=== PATIENT | female | born 1995 | race Caucasian/White ===

== ENCOUNTER 2017-02-12 11:52 | Emergency (ER) | payer BC ==
[2017-02-12 12:07] VITALS: BP 140/86
--- NOTE | 2017-02-12 12:07 | EDM.PDOC ---
[id number]: [id number] SHARP CHEST PAINS WHEN BREATHING Time Seen by Provider: 02/12/17 12:07 Source of Information: Reports: Patient, RN, RN notes reviewed History Limitations: Reports: No limitations - History of Present Illness INITIAL COMMENTS - FREE TEXT/NARRATIVE: C/O onset of sharp mid-sternal chest pains at 10:00HRS today. Denies cough, congestions, wheezing, N/V, abd. pain, radiating pain, sore throat, acid reflux , palpitations, or edema. Timing/Duration: Reports: Constant, Waxing/waning Location, General: Reports: chest Quality: Reports: Sharp Improves with: Reports: None Worsens with: Reports: Breathing (cough, and movement) Context, General: Denies: Activity, Exercise, Lifting, Sick contact, Trauma Associated Symptoms (General): Reports: no other symptoms - Related Data Allergies/ADRs: Allergies Allergy/AdvReac Type Severity Reaction Status Date / Time No Known Allergies Allergy Verified 02/12/17 12:03 Home Meds: Home Meds PARoxetine [Paxil] 20 mg PO DAILY 02/12/17 [History] Past Medical History - Past Health History Medical/Surgical History: Denies Medical/Surgical History Endocrine/Metabolic History: Reports: Obesity/BMI 30+ Social & Family History - Family History Family Medical History: Noncontributory - Tobacco Use Smoking Status *Q: Never Smoker - Alcohol Use Alcohol Use History: No - Recreational Drug Use Recreational Drug Use: No - Living Situation & Occupation Living situation: Reports: Occupation: employed ED ROS GENERAL - Review of Systems Review Of Systems: ROS reveals no pertinent complaints other than HPI. ED EXAM, GENERAL - Physical Exam Exam: See Below Exam Limited By: No limitations General Appearance: alert, WD/WN, no apparent distress, obese Nose: normal inspection, normal mucosa, no blood Throat/Mouth: Normal inspection, Normal lips, Normal teeth, Normal gums, Normal oropharynx, Normal voice, No airway compromise Head: atraumatic, normocephalic Neck: normal inspection, supple, non-tender, full range of motion. No: lymphadenopathy (L), lymphadenopathy (R) Respiratory/Chest: no respiratory distress, no accessory muscle use, decreased breath sounds. No: chest non-tender (tender to direct pressure on sternum which reproduces pain similar to the pt's cc pain.) Cardiovascular: normal peripheral pulses, regular rate, rhythm, no edema, no gallop, no JVD, no murmur, no rub GI/Abdominal: normal bowel sounds, soft, non tender, no distention Back Exam: normal inspection Extremities: normal inspection, normal range of motion, non-tender, normal capillary refill, no pedal edema Neurological: alert, oriented, CN II-XII intact, normal cognition, normal gait, no motor/sensory deficits Psychiatric: normal affect, normal mood Skin Exam: Warm, Dry, Intact, Normal color, No rash EKG INTERPRETATION EKG Date: 02/12/17 Time: 12:07 Rhythm: other (SR) Rate (beats/min): 91 [place]: normal P-wave: present QRS: normal ST-T: other (nonspecific changes in anterior leads) QT: normal Comparison: NA - no prior EKG Course - Vital Signs Last Recorded V/S: Last Vital Signs Temp 36.9 C 02/12/17 12:05 Pulse 92 02/12/17 12:05 Resp 18 02/12/17 12:05 BP 140/86 02/12/17 12:05 Pulse Ox 98 02/12/17 12:05 - Orders/Labs/Meds Orders: Active Orders 24 hr Category Date Time Status EKG 12 Lead [EKG Documentation Completion] [RC] STAT Care 02/12/17 12:17 Active Peripheral IV Care [RC] . DIRECTED Care 02/12/17 12:17 Active Peripheral IV Insertion Adult [OM.PC] Stat Oth 02/12/17 12:17 Ordered Labs: Laboratory Tests 02/12/17 02/12/17 02/12/17 Range/Units 12:11 12:11 12:21 WBC 7.5 (5.0-10.0) 10^3/uL RBC 4.82 (4.2-5.4) 10^6/uL Hgb 14.8 (12.0-16.0) g/dL Hct 41.7 (37.0-47.0) % MCV 86.5 (80-100) fL MCH 30.7 (27.0-34.0) pg MCHC 35.5 H (33.0-35.0) g/dL Plt Count 307 (150-450) 10^3/uL Neut % (Auto) 51.7 (42.2-75.2) % Lymph % (Auto) 40.4 (20.5-50.1) % [place] % (Auto) 5.8 (2-8) % Eos % (Auto) 1.6 (1.0-3.0) % Baso % (Auto) 0.5 (0.0-1.0) % D-Dimer, Quantitative (0-400) ng/mL Sodium (135-145) mmol/L Potassium (3.6-5.0) mmol/L Chloride (101-111) mmol/L Carbon Dioxide (21.0-31.0) mmol/L Anion Gap BUN (7-18) mg/dL Creatinine (0.6-1.3) mg/dL Est Cr Clr Drug Dosing mL/min Estimated GFR (MDRD) BUN/Creatinine Ratio Glucose (74-105) mg/dL Calcium (8.4-10.2) mg/dl Total Bilirubin (0.2-1.0) mg/dL AST (10-42) IU/L ALT (10-60) IU/L Alkaline Phosphatase (42-121) IU/L Troponin I (0.00-0.02) ng/ml Total Protein (6.7-8.2) g/dl Albumin (3.2-5.5) g/dl Globulin Albumin/Globulin Ratio Urine Color Yellow (YELLOW) Urine Appearance Slightly cloudy (CLEAR) Urine pH 5.5 (5.0-9.0) Ur Specific [place] 1.020 (1.005-1.030) Urine Protein Negative (NEGATIVE) Urine Glucose (UA) Negative (NEGATIVE) Urine Ketones Negative (NEGATIVE) Urine Occult Blood Large H (NEGATIVE) Urine Nitrite Negative (NEGATIVE) Urine Bilirubin Negative (NEGATIVE) Urine Urobilinogen 0.2 (0.2-1.0) mg/dL Ur Leukocyte Esterase Negative (NEGATIVE) Urine RBC 0-5 /HPF Urine WBC 0-5 (0-5/HPF) /HPF Ur Epithelial Cells Few /HPF Amorphous Sediment Few (0/HPF) /HPF Urine HCG, Qual Negative 02/12/17 02/12/17 Range/Units 12:21 12:21 WBC (5.0-10.0) 10^3/uL RBC (4.2-5.4) 10^6/uL Hgb (12.0-16.0) g/dL Hct (37.0-47.0) % MCV (80-100) fL MCH (27.0-34.0) pg MCHC (33.0-35.0) g/dL Plt Count (150-450) 10^3/uL Neut % (Auto) (42.2-75.2) % Lymph % (Auto) (20.5-50.1) % [place] % (Auto) (2-8) % Eos % (Auto) (1.0-3.0) % Baso % (Auto) (0.0-1.0) % D-Dimer, Quantitative < 100 (0-400) ng/mL Sodium 134 L (135-145) mmol/L Potassium 3.9 (3.6-5.0) mmol/L Chloride 98 L (101-111) mmol/L Carbon Dioxide 27.0 (21.0-31.0) mmol/L Anion Gap 12.9 BUN 14 (7-18) mg/dL Creatinine 0.6 (0.6-1.3) mg/dL Est Cr Clr Drug Dosing 110.04 mL/min Estimated GFR (MDRD) > 60 BUN/Creatinine Ratio 23.33 Glucose 95 (74-105) mg/dL Calcium 10.0 (8.4-10.2) mg/dl Total Bilirubin 0.6 (0.2-1.0) mg/dL AST 46 H (10-42) IU/L ALT 71 H (10-60) IU/L Alkaline Phosphatase 63 (42-121) IU/L Troponin I < 0.02 (0.00-0.02) ng/ml Total Protein 8.6 H (6.7-8.2) g/dl Albumin 5.0 (3.2-5.5) g/dl Globulin 3.6 Albumin/Globulin Ratio 1.39 Urine Color (YELLOW) Urine Appearance (CLEAR) Urine pH (5.0-9.0) Ur Specific [place] (1.005-1.030) Urine Protein (NEGATIVE) Urine Glucose (UA) (NEGATIVE) Urine Ketones (NEGATIVE) Urine Occult Blood (NEGATIVE) Urine Nitrite (NEGATIVE) Urine Bilirubin (NEGATIVE) Urine Urobilinogen (0.2-1.0) mg/dL Ur Leukocyte Esterase (NEGATIVE) Urine RBC /HPF Urine WBC (0-5/HPF) /HPF Ur Epithelial Cells /HPF Amorphous Sediment (0/HPF) /HPF Urine HCG, Qual Meds: Medications Discontinued Medications Generic Name Dose Route Start Last Admin Trade Name Freq PRN Reason Stop Dose Admin Hydrocodone Bitart/Acetaminophen 1 tab 02/12/17 13:09 02/12/17 13:20 [place] 325-10 Mg PO 02/12/17 13:10 1 tab ONETIME ONE Administration Methylprednisolone Sodium Succinate 125 mg 02/12/17 13:09 02/12/17 13:20 Solu-Medrol IVPUSH 02/12/17 13:10 125 mg ONETIME ONE Administration Sodium Chloride 10 ml 02/12/17 12:17 02/12/17 12:25 Saline Flush FLUSH 10 ml ASDIRECTED PRN Administration Keep Vein Open Departure - Departure Time of Disposition: 13:58 Disposition: Home, Self-Care 01 Condition: good Clinical Impression: Pleurisy without effusion Instructions: Pleurisy, [id number], Nonspecific Chest Pain, [id number] Referrals: PCP,Not In Area [Primary Care Provider] - Forms: ED Department Discharge Additional Instructions: Rx: Naprosyn 500mg *Take with food. Rx: Tylenol No. 3 *Take with food. Do not drive while under the influence of this medication. Take several deep breaths at least once every hour while awake to help prevent the development of pneumonia. Follow up in clinic if not improving in 1 week. Return to ER if worse at any time. - My Orders Last 24 Hours: My Active Orders 02/12/17 12:17 EKG 12 Lead [EKG Documentation Completion] [RC] STAT Peripheral IV Care [RC] . DIRECTED Peripheral IV Insertion Adult [OM.PC] Stat - Assessment/Plan Last 24 Hours: My Active Orders 02/12/17 12:17 EKG 12 Lead [EKG Documentation Completion] [RC] STAT Peripheral IV Care [RC] . DIRECTED Peripheral IV Insertion Adult [OM.PC] Stat
[2017-02-12] MEDS ORDERED: Sodium Chloride 0.9% 10 ML Syringe FLUSH PRN (12:17)
[2017-02-12 12:53] LABS: CHLORIDE,CL 98 mmol/L (101-111); SODIUM,NA 134 mmol/L (135-145)
[2017-02-12] MEDS ORDERED: Acetaminophen/HYDROcodone 325-10 MG Tab PO ONE (13:09)
[2017-02-12] MEDS ORDERED: methylPREDNISolone Sodium Succinate 125 MG/2 ML SDV IVPUSH ONE (13:09)
--- NOTE | 2017-02-12 15:16 | CR ---
CLINICAL HISTORY: 21-year-old female with chest pain. INTERPRETATION: AP portable chest film negative. Reasonable inspiratory effort obese female with external case monitor leads and gown snaps. Normal cardiac silhouette and bony thorax. No alveolar edema or dependent pleural effusion. No lung mass, hilar lymphadenopathy or focal lobar pneumonia. No atelectasis/collapse. No pneumothorax.
--- NOTE | 2017-02-19 12:02 | EKG ---
02/12/2017 - MIIR WILSON I reviewed the EKG and agree with the machine's reading. [facility] /[id number]
== END 2017-02-12 14:15 | disposition home or self-care (01) ==
LOC: DL.ED 11:52
DX: R09.1 Pleurisy (principal); E66.9 Obesity, unspecified; Z68.30 Body mass index [BMI] 30.0-30.9, adult; Z79.899 Other long term (current) drug therapy
CPT/HCPCS: 36415; 71010; 80053; 81001; 81025; 84484; 85025; 85379; 93005; 99285; A9270; J2930; J7050

== ENCOUNTER 2019-12-29 20:40 | Emergency (ER) | payer BC ==
[2019-12-29 20:54] VITALS: BP 137/81; PULSE 85
--- NOTE | 2019-12-29 21:28 | EDM.PDOC ---
ED HPI GENERAL MEDICAL PROBLEM - General Chief Complaint: Lower Extremity Injury/Pain Stated Complaint: TOP OF FOOT IS SWALLON. GOT OUT OF BED YESTERDAY. Time Seen by Provider: 12/29/19 20:55 Source of Information: Reports: Patient History Limitations: Reports: No Limitations - History of Present Illness INITIAL COMMENTS - FREE TEXT/NARRATIVE: ED with c/o pain to top of right foot, stated getting out of bed stepped wrong and pain in foot since, Described rolling foot ankle on outside. Treatments [employer] CUTTER: Reports: Acetaminophen, NSAIDS Right Foot Pain Score (Numeric/FACES): 4 - Related Data Allergies Allergy/AdvReac Type Severity Reaction Status Date / Time No Known Allergies Allergy Verified 12/29/19 20:46 Home Meds: Home Meds PARoxetine [Paxil] 30 mg PO DAILY 02/12/17 [History] Fingolimod HCl [Gilenya] 0.5 mg PO DAILY 12/29/19 [History] Rosuvastatin Calcium [Crestor] 40 mg PO BEDTIME 12/29/19 [History] Past Medical History - Past Health History Medical/Surgical History: Denies Medical/Surgical History HEENT History: Reports: Impaired Vision Cardiovascular History: Reports: High Cholesterol Respiratory History: Reports: Asthma Neurological History: Reports: MS Psychiatric History: Reports: Anxiety Endocrine/Metabolic History: Reports: Obesity/BMI 30+ Social & Family History - Family History Family Medical History: Noncontributory - Tobacco Use Smoking Status *Q: Never Smoker Second Hand Smoke Exposure: No - Caffeine Use Caffeine Use: Reports: Coffee - Recreational Drug Use Recreational Drug Use: No - Living Situation & Occupation Living situation: Reports: Occupation: Employed Review of Systems - Review of Systems Review Of Systems: Comprehensive ROS is negative, except as noted in HPI. ED EXAM, GENERAL - Physical Exam Exam: See Below Exam Limited By: No Limitations General Appearance: Alert, No Apparent Distress Ears: Normal External Exam, Hearing Grossly Normal Head: Atraumatic, Normocephalic Neck: Full Range of Motion Respiratory/Chest: Normal Breath Sounds Cardiovascular: Normal Peripheral Pulses Extremities: Other (mild selling right posterior foot and area below ankle. Minimal pain with flexion and internal rotation. Full external rotation and extension. full weight bearing.). No: Limited Range of Motion Neurological: Alert, Oriented, Normal Cognition Psychiatric: Normal Affect, Normal Mood Skin Exam: Warm, Dry, Intact, Normal Color. No: Ecchymosis Course - Vital Signs Last Recorded V/S: Last Vital Signs Temp 96.6 F L 12/29/19 20:48 Pulse 85 12/29/19 20:48 Resp 16 12/29/19 20:48 BP 137/81 12/29/19 20:48 Pulse Ox 99 12/29/19 20:48 - Orders/Labs/Meds Orders: Active Orders 24 hr Category Date Time Status Foot Comp Min 3V Rt [CR] Urgent Exams 12/29/19 20:55 Taken Departure - Departure Time of Disposition: 21:57 Disposition: Home, Self-Care 01 Condition: Good Clinical Impression: Foot sprain Qualifiers: Encounter type: initial encounter Laterality: right Qualified Code(s): S93.601A - Unspecified sprain of right foot, initial encounter - Discharge Information *PRESCRIPTION DRUG MONITORING PROGRAM REVIEWED*: No *COPY OF PRESCRIPTION DRUG MONITORING REPORT IN PATIENT SHAMIR: No Forms: ED Department Discharge Additional Instructions: tylenol or ibuprofen, may alternate every 4 hours as needed for discomfort farzaneh elevate weight bearing as tolerated Sepsis Event Note - Evaluation Sepsis Screening Result: No Definite Risk - Focused Exam Vital Signs: Vital Signs Temp Pulse Resp BP Pulse Ox 12/29/19 20:48 96.6 F L 85 16 137/81 99 Date Exam was Performed: 12/29/19 Time Exam was Performed: 21:57 - My Orders Last 24 Hours: My Active Orders 12/29/19 20:55 Foot Comp Min 3V Rt [CR] Urgent - Assessment/Plan Last 24 Hours: My Active Orders 12/29/19 20:55 Foot Comp Min 3V Rt [CR] Urgent
== END 2019-12-29 22:00 | disposition home or self-care (01) ==
LOC: DL.ED 20:40
DX: S93.601A Unspecified sprain of right foot, initial encounter (principal); J45.909 Unspecified asthma, uncomplicated; E78.00 Pure hypercholesterolemia, unspecified; F41.9 Anxiety disorder, unspecified; E66.9 Obesity, unspecified; Z68.42 Body mass index [BMI] 45.0-49.9, adult; Z79.899 Other long term (current) drug therapy; X50.9XXA Other and unspecified overexertion or strenuous movements or postures, initial encounter
CPT/HCPCS: 73630-RT; 99283-25